=== PATIENT | female | born 1995 | race Caucasian/White ===

== ENCOUNTER 2018-04-28 19:58 | Emergency (ER) | payer OTHER ==
[~2018-04-28] VITALS: Ht 177.8 cm; Wt 62.1 kg
[2018-04-28 20:04] VITALS: BP 122/74
[2018-04-28] MEDS ORDERED: IV NORMAL SALINE 1,000ML 1,000 ML IV SCH (20:09)
--- NOTE | 2018-04-28 20:13 | PHYS DOC ---
Past History Past Medical History: No Pertinent History Past Surgical History: No Surgical History Alcohol Use: None Adult General HPI HPI Patient is a 22-year-old female who presents to the emergency department for evaluation. She states this morning she had a little bit of left upper quadrant abdominal pain, which has been waxing and waning throughout the day, and then just prior to arrival she began experiencing nausea and vomited 3 times. She did not have any bloody emesis. She has not had any diarrhea. She denies any dizziness or lightheadedness, numbness or weakness. There are no alleviating, or exacerbating factors to her symptoms. She has not had any pelvic pain, vaginal bleeding or discharge. Review of Systems Review of Systems Constitutional: Denies fever or chills [] Eyes: Denies change in visual acuity, redness, or eye pain [] HENT: Denies nasal congestion or sore throat [] Respiratory: Denies cough or shortness of breath [] Cardiovascular: The patient denies any shortness of breath, chest pain, palpitations, or orthopnea[] GI: No additional information not addressed in HPI [] : Denies dysuria or hematuria [] Musculoskeletal: Denies back pain or joint pain [] Integument: Denies rash or skin lesions [] Neurologic: Denies headache, focal weakness or sensory changes [] Endocrine: Denies polyuria or polydipsia [] All other systems were reviewed and found to be within normal limits, except as documented in this note. Physical Exam Physical Exam PHYSICAL EXAM: CONSTITUTIONAL: Well developed, well nourished HEAD: normocephalic, atraumatic EENT: PERRL, EOMI. Conjunctivae normal color, sclerae non-icteric; moist mucous membranes. NECK: Supple, non-tender; no meningismus. LUNGS: Lungs CTA, breathing even and unlabored. Normal air movement. HEART: Regular rate and rhythm, no murmur CHEST: No deformity; non-tender ABDOMEN: The abdomen is soft, there is focal right lower quadrant tenderness to palpation, without rebound or guarding, the remainder the abdomen is relatively soft and non-tender, no masses or bruits. There is no suprapubic or pelvic tenderness to palpation. EXTREM: Normal ROM; no deformity, no calf tenderness. Normal pulses palpable in all extremities. There is no pedal edema. SKIN: No rash; no diaphoresis NEURO: Alert; normal speech and cognition; CN's grossly intact; strength grossly intact without focal deficit. BACK: No CVA TTP. Current Patient Data Lab Results Laboratory Tests Test 04/28/18 20:25 04/28/18 20:46 04/28/18 20:57 White Blood Count 9.6 x10^3/uL Red Blood Count 4.86 x10^6/uL Hemoglobin 14.8 g/dL Hematocrit 43.9 % Mean Corpuscular Volume 90 fL Mean Corpuscular Hemoglobin 31 pg Mean Corpuscular Hemoglobin Concent 34 g/dL Red Cell Distribution Width 13.4 % Platelet Count 214 x10^3/uL Neutrophils (%) (Auto) 80 % Lymphocytes (%) (Auto) 15 % Monocytes (%) (Auto) 4 % Eosinophils (%) (Auto) 1 % Basophils (%) (Auto) 0 % Neutrophils # (Auto) 7.6 x10^3uL Lymphocytes # (Auto) 1.4 x10^3/uL Monocytes # (Auto) 0.4 x10^3/uL Eosinophils # (Auto) 0.1 x10^3/uL Basophils # (Auto) 0.0 x10^3/uL Sodium Level 141 mmol/L Potassium Level 3.3 mmol/L Chloride Level 105 mmol/L Carbon Dioxide Level 28 mmol/L Anion Gap 8 Blood Urea Nitrogen 17 mg/dL Creatinine 0.7 mg/dL Estimated GFR (Cockcroft-Gault) 106.7 BUN/Creatinine Ratio 24 Glucose Level 88 mg/dL Calcium Level 8.9 mg/dL Total Bilirubin 1.1 mg/dL Aspartate Amino Transf (AST/SGOT) 18 U/L Alanine Aminotransferase (ALT/SGPT) 14 U/L Alkaline Phosphatase 83 U/L Total Protein 6.7 g/dL Albumin 4.2 g/dL Albumin/Globulin Ratio 1.7 Lipase 85 U/L Serum Test, Qualitative Negative Urine Collection Type Unknown Urine Color Yellow Urine Clarity Hazy Urine pH 6.5 Urine Specific [place] 1.025 Urine Protein Neg Urine Glucose (UA) Neg mg/dL Urine Ketones (Stick) Neg mg/dL Urine Blood Neg Urine Nitrite Neg Urine Bilirubin Neg Urine Urobilinogen Dipstick 0.2 mg/dL Urine Leukocyte Esterase Neg Urine RBC 0 /HPF Urine WBC 0 /HPF Urine Squamous Epithelial Cells Occ /LPF Urine Bacteria 0 /HPF Bedside Urine HCG, Qualitative hcg negative Current Medications Medications (Trade) Dose Ordered Sig/[place] Route PRN Reason Start Time Stop Time Status Last Admin Dose Admin Sodium Chloride 1,000 ml @ 1,000 mls/hr Q1H IV 04/28/18 20:09 04/28/18 21:08 DC 04/28/18 20:29 Ondansetron HCl (Zofran) 4 mg 1X ONCE IV 04/28/18 20:15 04/28/18 20:33 DC 04/28/18 20:29 Iohexol (Omnipaque 300 Mg/ml) 75 ml 1X ONCE IV 04/28/18 20:30 04/28/18 20:33 DC 04/28/18 20:55 Iohexol (Omnipaque 300 Mg/ml) 75 ml 1X ONCE IV 04/28/18 20:30 04/28/18 20:33 DC EKG EKG [] Radiology/Procedures Radiology/Procedures [PROCEDURE: CT ABD PELV W/ IV CONTRST ONLY Examination: CT of the abdomen pelvis with IV contrast HISTORY: History of right lower quadrant abdominal pain, nausea, vomiting COMPARISON: None available Technique: Axial CT images of the abdomen pelvis were performed with IV contrast. Coronal and sagittal reformats are performed. Exposure: One or more of the following individualized dose reduction techniques were utilized for this examination: 1. Automated exposure control 2. Adjustment of the mA and/or kV according to patient size 3. Use of iterative reconstruction technique . Findings: Minimal left lung base airspace opacity likely atelectasis or infiltrates. The visualized liver, spleen, adrenals grossly appears unremarkable. The gallbladder is mildly distended. The stomach is mildly distended. The visualized pancreas grossly appears unremarkable. The stomach is mildly distended. Mild fluid distended bowel loops identified throughout the abdomen. The partially visualized appendix appears unremarkable however evaluation is limited lack of significant abdominal fat and multiple bowel loops in this region. No obvious inflammatory fat stranding identified in the right lower quadrant abdomen. Feces and gas noted in the colon. The bilateral kidneys enhance symmetrically. The caliber of the aorta grossly appears unremarkable. There is a cystic structure identified in the right adnexa measuring 2 cm could be a right ovarian follicle or cyst. No evidence of lytic destructive lesion. IMPRESSION: 1. Multiple fluid distended small bowel loops identified throughout the abdomen with enhancement of the bowel wall, nonspecific could be mild enteritis. 2. The appendix is partially visualized appears within normal limits however examination limited due to lack of significant intra-abdominal fat. 3. 2 cm cyst or follicle right ovary. 4. Minimal infiltrates left lung base. ] Course & Med Decision Making Course & Med Decision Making Pertinent Labs and Imaging studies reviewed. (See chart for details) [9:35 PM:Patient remains stable. I discussed test results, the need for close follow-up, and return precautions.] Dragon Disclaimer Dragon Disclaimer This electronic medical record was generated, in whole or in part, using a voice recognition dictation system. Departure Departure: Impression: Primary Impression: Nausea & vomiting Additional Impression: Abdominal pain Disposition: 01 HOME, SELF-CARE Condition: STABLE Patient Instructions: Abdominal Pain, Nausea and Vomiting, Viral Gastroenteritis Scripts Ondansetron (ONDANSETRON ODT) 4 Mg Tab.rapdis 1 TAB PO PRN Q6-8HRS for N/V, #15 TAB Prov: EDER WESLEY MD 04/28/18 Problem Qualifiers EDER WESLEY MD Apr 28, 2018 20:13
[2018-04-28] MEDS ORDERED: ONDANSETRON PF 4 MG/2 ML VIAL. IV ONE (20:15)
[2018-04-28] MEDS ORDERED: IOHEXOL 300 MG/ML 75 ML VIAL. IV ONE ×2 (20:30)
[2018-04-28 20:46] LABS: BASO % 0 % (0-3); EOS # 0.1 x10^3/uL (0.0-0.7); EOS % 1 % (0-3); HEMATOCRIT 43.9 % (36.0-47.0); HEMOGLOBIN 14.8 g/dL (12.0-15.5); LYMPH # 1.4 x10^3/uL (1.0-4.8); LYMPH % 15 % (24-48); MEAN CORPUSCULAR HEMOGLOBIN 31 pg (25-35); MEAN CORPUSCULAR HGB CONC 34 g/dL (31-37); MEAN CORPUSCULAR VOLUME 90 fL (79-100); MONO # 0.4 x10^3/uL (0.0-1.1); MONO % 4 % (0-9); NEUT # 7.6 x10^3uL (1.8-7.7); NEUT % 80 % (31-73); PLATELET COUNT 214 x10^3/uL (140-400); RED BLOOD COUNT 4.86 x10^6/uL (3.50-5.40); RED CELL DISTRIBUTION WIDTH 13.4 % (11.5-14.5); WHITE BLOOD COUNT 9.6 x10^3/uL (4.0-11.0)
[2018-04-28 20:52] LABS: PREG TEST PT QUAL NEGATIVE (NEG)
[2018-04-28 20:58] LABS: ALBUMIN 4.2 g/dL (3.4-5.0); ALBUMIN/GLOBULIN RATIO 1.7 (1.0-1.7); CALCIUM 8.9 mg/dL (8.5-10.1); CREATININE 0.7 mg/dL (0.6-1.0); GFR 106.7; POTASSIUM 3.3 mmol/L (3.5-5.1); TOTAL BILIRUBIN 1.1 mg/dL (0.2-1.0); TOTAL PROTEIN 6.7 g/dL (6.4-8.2)
[2018-04-28 21:09] LABS: BACTERIA,URINE 0 /HPF (0-FEW); BILIRUBIN,URINE NEG (NEG); CLARITY,URINE HAZY; COLOR,URINE YELLOW; GLUCOSE,URINE NEG (NEG); NITRITE,URINE NEG (NEG); RBC,URINE 0 /HPF (0-2); SQUAMOUS EPITHELIAL CELL,UR OCC /LPF; UROBILINOGEN,URINE 0.2 mg/dL (0.2 mg/dL); WBC,URINE 0 /HPF (0-4)
--- NOTE | 2018-04-28 21:25 | RAD ---
Examination: CT of the abdomen pelvis with IV contrast HISTORY: History of right lower quadrant abdominal pain, nausea, vomiting COMPARISON: None available Technique: Axial CT images of the abdomen pelvis were performed with IV contrast. Coronal and sagittal reformats are performed. Exposure: One or more of the following individualized dose reduction techniques were utilized for this examination: 1. Automated exposure control 2. Adjustment of the mA and/or kV according to patient size 3. Use of iterative reconstruction technique . Findings: Minimal left lung base airspace opacity likely atelectasis or infiltrates. The visualized liver, spleen, adrenals grossly appears unremarkable. The gallbladder is mildly distended. The stomach is mildly distended. The visualized pancreas grossly appears unremarkable. The stomach is mildly distended. Mild fluid distended bowel loops identified throughout the abdomen. The partially visualized appendix appears unremarkable however evaluation is limited lack of significant abdominal fat and multiple bowel loops in this region. No obvious inflammatory fat stranding identified in the right lower quadrant abdomen. Feces and gas noted in the colon. The bilateral kidneys enhance symmetrically. The caliber of the aorta grossly appears unremarkable. There is a cystic structure identified in the right adnexa measuring 2 cm could be a right ovarian follicle or cyst. No evidence of lytic destructive lesion. IMPRESSION: 1. Multiple fluid distended small bowel loops identified throughout the abdomen with enhancement of the bowel wall, nonspecific could be mild enteritis. 2. The appendix is partially visualized appears within normal limits however examination limited due to lack of significant intra-abdominal fat. 3. 2 cm cyst or follicle right ovary. 4. Minimal infiltrates left lung base. Electronically signed by: King Choe MD (04/28/2018 9:22 PM) [place] [id number]
[2018-04-28] MEDS ORDERED: ONDA4TAB12 PO (21:36)
== END 2018-04-28 21:49 | disposition home or self-care (01) ==
LOC: ER 19:58
DX: R11.2 Nausea with vomiting, unspecified (principal); R10.32 Left lower quadrant pain; R91.8 Other nonspecific abnormal finding of lung field
CPT/HCPCS: 36415; 74177; 80053; 81001; 81025; 83690; 84703; 85025; 96361; 96374; 99284; J2405; Q9967; J7030

== ENCOUNTER 2019-11-08 09:53 | Emergency (ER) | payer OTHER ==
[~2019-11-08] VITALS: Ht 177.8 cm; Wt 61.0 kg
[~2019-11-08 09:53] MED LIST: ONDA4TAB12 PO
[2019-11-08] MEDS ORDERED: IV NORMAL SALINE 1,000ML 1,000 ML IV ONE (10:15)
[2019-11-08] MEDS ORDERED: ONDANSETRON PF 4 MG/2 ML VIAL. IVP ONE (10:15)
[2019-11-08] MEDS ORDERED: KETOROLAC 15 MG/ML VIAL. IVP ONE (10:15)
[2019-11-08 10:37] LABS: BASO % 1 % (0-3); EOS # 0.1 x10^3/uL (0.0-0.7); EOS % 2 % (0-3); HEMATOCRIT 37.3 % (36.0-47.0); HEMOGLOBIN 12.7 g/dL (12.0-15.5); LYMPH # 1.3 x10^3/uL (1.0-4.8); LYMPH % 23 % (24-48); MEAN CORPUSCULAR HEMOGLOBIN 31 pg (25-35); MEAN CORPUSCULAR HGB CONC 34 g/dL (31-37); MEAN CORPUSCULAR VOLUME 91 fL (79-100); MONO # 0.4 x10^3/uL (0.0-1.1); MONO % 7 % (0-9); NEUT # 3.7 x10^3uL (1.8-7.7); NEUT % 67 % (31-73); PLATELET COUNT 252 x10^3/uL (140-400); RED CELL DISTRIBUTION WIDTH 12.7 % (11.5-14.5); WHITE BLOOD COUNT 5.6 x10^3/uL (4.0-11.0)
[2019-11-08 10:42] LABS: CREATININE 1.1 mg/dL (0.6-1.0); GFR 62.1; POTASSIUM 4.2 mmol/L (3.5-5.1)
[2019-11-08 10:48] LABS: ALBUMIN/GLOBULIN RATIO 1.3 (1.0-1.7); TOTAL BILIRUBIN 0.8 mg/dL (0.2-1.0); TOTAL PROTEIN 7.1 g/dL (6.4-8.2)
[2019-11-08 10:53] LABS: CLARITY,URINE CLEAR; COLOR,URINE ORANGE
[2019-11-08 10:54] LABS: BACTERIA,URINE 0 /HPF (0-FEW); RBC,URINE 0 /HPF (0-2); SQUAMOUS EPITHELIAL CELL,UR MOD /LPF; WBC,URINE RARE /HPF (0-4)
--- NOTE | 2019-11-08 11:09 | RAD ---
CT Abdomen and Pelvis without contrast History: Flank pain Technique: Noncontrast CT imaging was performed of the abdomen and pelvis. Multiplanar images are reviewed. Exposure: One or more of the following individualized dose reduction techniques were utilized for this examination: 1. Automated exposure control 2. Adjustment of the mA and/or kV according to patient size 3. Use of iterative reconstruction technique. Comparison: April 28, 2018 Findings: There is some motion degradation. No urolithiasis or hydronephrosis is identified. Accurate evaluation of abdominal visceral organs is limited without intravenous contrast. Gallbladder is present, appears somewhat more distended than previously although no definitive intraluminal abnormality by CT. There is no obvious abnormality of the spleen, liver, or pancreas. There is no adrenal nodularity. Accurate evaluation of bowel is limited without oral contrast and also due to the paucity of intra-abdominal and intrapelvic fat. There is no significant free air, free fluid, bowel dilatation. There is variable retained stool in the colon. Bowel is not significantly dilated. Appendix is not confidently identified if still present. Impression: 1. Gallbladder is present without obvious intraluminal abnormality by CT although appears somewhat more distended than previously. 2. There is variable retained stool in the colon. Appendix is not confidently identified to confidently exclude acute appendicitis by imaging. Electronically signed by: Ramon Chung MD (11/08/2019 11:07 AM) [id number]
--- NOTE | 2019-11-08 11:12 | PHYS DOC ---
Past History Past Medical History: No Pertinent History Past Surgical History: No Surgical History Smoking: Non-smoker Alcohol Use: None Drug Use: None General Adult EDM: Chief Complaint: URINARY FREQUENCY HPI: HPI: Patient is a 24-year-old female who presents to the emergency room with bilateral flank pain that started 2 days ago. Patient states that she was seen at an urgent care on Wednesday for a UTI and she was sent home with Bactrim and Pyridium. Her symptoms have not improved on the antibiotics and she continues to have dysuria and increased frequency of urination. Patient felt feverish this morning and took a Tylenol around 7 AM. She also had one episode of nausea and vomiting this morning. She denies any history of kidney stones. She reports body aches, chills, and night sweats. Patient denies having any vaginal discharge or concerns for STDs. Review of Systems: Review of Systems: Constitutional: Reports fevers, chills, body aches, night sweats Eyes: Denies redness or eye pain HENT: Denies nasal congestion or sore throat Respiratory: Denies cough or shortness of breath Cardiovascular: Denies chest pain or palpitations GI: Reports abdominal pain, nausea, vomiting x1 : Reports dysuria, hematuria, increased frequency of urination Musculoskeletal: Denies joint pain, reports bilateral flank pain Integument: Denies rash or skin lesions Neurologic: Denies headache, focal weakness or sensory changes Complete systems were reviewed and found to be within normal limits, except as documented in this note. Current Medications: Current Meds: Current Medications Medications (Trade) Dose Ordered Sig/[facility] Start Time Stop Time Status Last Admin Dose Admin Ketorolac Tromethamine (Toradol 15mg Vial) 15 mg 1X ONCE 11/08/19 10:15 11/08/19 10:22 DC 11/08/19 10:28 15 MG Ondansetron HCl (Zofran) 4 mg 1X ONCE 11/08/19 10:15 11/08/19 10:22 DC 11/08/19 10:28 4 MG Sodium Chloride 1,000 ml @ 1,000 mls/hr 1X ONCE 11/08/19 10:15 11/08/19 11:14 11/08/19 10:28 1,000 MLS/HR Allergies: Allergies: Allergies Coded Allergies Type Severity Reaction Last Updated Verified No Known Drug Allergies 04/28/18 No Physical Exam: PE: Constitutional: Well developed, well nourished, no acute distress, non-toxic appearance HENT: Normocephalic, atraumatic Eyes: PERRL, EOMI, conjunctiva normal, no discharge Neck: Normal range of motion, no tenderness, supple Lungs & Thorax: No respiratory distress, equal chest rise and fall Abdomen: Soft, mild tenderness to epigastric region, no distension or guarding, no rebound tenderness Pelvic: Pelvic exam Chaperoned by DAVE Oh, external genitalia normal, no cervical motion tenderness, no adnexal tenderness, scant blood present in vaginal vault Skin: Warm, dry, no erythema, no rash Back: Right-sided CVA tenderness, tenderness to palpation to b/l paraspinal musculature of lower back Extremities: No tenderness, ROM intact, no edema Neurologic: Alert and oriented X 3, normal motor function, normal sensory function, no focal deficits noted Psychologic: Affect normal, judgment normal Current Patient Data: Labs: Laboratory Tests Test 11/08/19 10:07 11/08/19 10:23 Urine Collection Type Unknown Urine Color [place] Urine Clarity Clear Urine pH Urine Specific [place] Urine Protein (NEG-TRACE) Urine Glucose (UA) mg/dL (NEG) Urine Ketones (Stick) mg/dL (NEG) Urine Blood (NEG) Urine Nitrite (NEG) Urine Bilirubin (NEG) Urine Urobilinogen Dipstick mg/dL (0.2 mg/dL) Urine Leukocyte Esterase (NEG) Urine RBC 0 /HPF (0-2) Urine WBC Rare /HPF (0-4) Urine Squamous Epithelial Cells Mod /LPF Urine Bacteria 0 /HPF (0-FEW) White Blood Count 5.6 x10^3/uL (4.0-11.0) Red Blood Count 4.10 x10^6/uL (3.50-5.40) Hemoglobin 12.7 g/dL (12.0-15.5) Hematocrit 37.3 % (36.0-47.0) Mean Corpuscular Volume 91 fL (79-100) Mean Corpuscular Hemoglobin 31 pg (25-35) Mean Corpuscular Hemoglobin Concent 34 g/dL (31-37) Red Cell Distribution Width 12.7 % (11.5-14.5) Platelet Count 252 x10^3/uL (140-400) Neutrophils (%) (Auto) 67 % (31-73) Lymphocytes (%) (Auto) 23 % (24-48) L Monocytes (%) (Auto) 7 % (0-9) Eosinophils (%) (Auto) 2 % (0-3) Basophils (%) (Auto) 1 % (0-3) Neutrophils # (Auto) 3.7 x10^3uL (1.8-7.7) Lymphocytes # (Auto) 1.3 x10^3/uL (1.0-4.8) Monocytes # (Auto) 0.4 x10^3/uL (0.0-1.1) Eosinophils # (Auto) 0.1 x10^3/uL (0.0-0.7) Basophils # (Auto) 0.0 x10^3/uL (0.0-0.2) Sodium Level 138 mmol/L (136-145) Potassium Level 4.2 mmol/L (3.5-5.1) Chloride Level 103 mmol/L (98-107) Carbon Dioxide Level 24 mmol/L (21-32) Anion Gap 11 (6-14) Blood Urea Nitrogen 12 mg/dL (7-20) Creatinine 1.1 mg/dL (0.6-1.0) H Estimated GFR (Cockcroft-Gault) 62.1 BUN/Creatinine Ratio 11 (6-20) Glucose Level 88 mg/dL (70-99) Lactic Acid Level 0.8 mmol/L (0.4-2.0) Calcium Level 9.0 mg/dL (8.5-10.1) Total Bilirubin 0.8 mg/dL (0.2-1.0) Aspartate Amino Transferase (AST) 14 U/L (15-37) L Alanine Aminotransferase (ALT) 14 U/L (14-59) Alkaline Phosphatase 66 U/L (46-116) Total Protein 7.1 g/dL (6.4-8.2) Albumin 4.0 g/dL (3.4-5.0) Albumin/Globulin Ratio 1.3 (1.0-1.7) Lipase 65 U/L (73-393) L Radiology/Procedures: Radiology/Procedures: PROCEDURE: CT ABDOMEN PELVIS WO CONTRAST CT Abdomen and Pelvis without contrast History: Flank pain Technique: Noncontrast CT imaging was performed of the abdomen and pelvis. Multiplanar images are reviewed. Exposure: One or more of the following individualized dose reduction techniques were utilized for this examination: 1. Automated exposure control 2. Adjustment of the mA and/or kV according to patient size 3. Use of iterative reconstruction technique. Comparison: April 28, 2018 Findings: There is some motion degradation. No urolithiasis or hydronephrosis is identified. Accurate evaluation of abdominal visceral organs is limited without intravenous contrast. Gallbladder is present, appears somewhat more distended than previously although no definitive intraluminal abnormality by CT. There is no obvious abnormality of the spleen, liver, or pancreas. There is no adrenal nodularity. Accurate evaluation of bowel is limited without oral contrast and also due to the paucity of intra-abdominal and intrapelvic fat. There is no significant free air, free fluid, bowel dilatation. There is variable retained stool in the colon. Bowel is not significantly dilated. Appendix is not confidently identified if still present. Impression: 1. Gallbladder is present without obvious intraluminal abnormality by CT although appears somewhat more distended than previously. 2. There is variable retained stool in the colon. Appendix is not confidently identified to confidently exclude acute appendicitis by imaging. Electronically signed by: Ramon Chung MD (11/08/2019 11:07 AM) [id number] Course & Med Decision Making: Course & Med Decision Making Pertinent Labs and Imaging studies reviewed. (See chart for details) Patient is a 24-year-old female who presents with bilateral flank pain present for the past 2 days. Patient was seen at urgent care on Wednesday and has been continuing antibiotics for a UTI. UA here showed that her UTI is being appropriately treated and urine was negative. Her labs were within normal limits. CT scan showed a mildly distended gallbladder compared to previous studies, stool retention in the colon, but no signs of kidney stones. Patient denied having any RUQ abdominal pain. Medications were given for her symptoms with improvement in her vitals remained stable throughout her stay here. She denied having any concerns for STDs. Pelvic exam was performed with no abnormalities found and swabs were sent off for testing. Patient agreed to empiric treatment for STDs. GC test pending at time of discharge. She will be sent home with a prescription for muscle relaxers for her back pain. Patient stable for discharge with outpatient follow-up with PCP. Discussed findings and plan with patient, who acknowledges understanding and agreement. Dragon Disclaimer: Justin Disclaimer: This electronic medical record was generated, in whole or in part, using a voice recognition dictation system. Departure Departure: Impression: Primary Impression: Flank pain Additional Impressions: Dysuria History of urinary tract infection Disposition: HOME/RESIDENCE PRIOR TO ADM Condition: STABLE Referrals: AZRA BURT (PCP) Patient Instructions: Dysuria, Flank Pain, [id number], Urinary Tract Infection, [id number] Additional Instructions: Please continue previously prescribed antibiotics. Take over the counter Tylenol and/or Ibuprofen for pain or discomfort. Scripts Orphenadrine Citrate (ORPHENADRINE CITRATE) 100 Mg Tablet.er 1 TAB PO BID PRN for MUSCLE PAIN, #14 TAB 0 Refills Prov: CATHERINE BISWAS DO 11/08/19 CATHERINE BISWAS DO Nov 08, 2019 11:12
[2019-11-08] MEDS ORDERED: AZITHROMYCIN 250 MG TABLET. PO ONE (11:30)
[2019-11-08] MEDS ORDERED: cefTRIAXone IM 250 MG VIAL IM ONE (11:30)
[2019-11-08 12:22] VITALS: BP 106/56
[2019-11-08] MEDS ORDERED: ORPH-16 PO (12:50)
[2019-11-10 07:38] LABS: CHLAMYDIA PROBE Negative (Negative)
== END 2019-11-08 13:00 | disposition home or self-care (01) ==
LOC: ER 09:53
DX: R10.13 Epigastric pain (principal); R30.0 Dysuria; Z87.440 Personal history of urinary (tract) infections
CPT/HCPCS: 36415; 74176; 80053; 81001; 81025; 83605; 83690; 85025; 87491; 87591; 96361; 96372; 96374; 96375; 99284; J0456; J0696; J1885; J2405; J7030; Q0111